=== PATIENT | male | born 1955 | race Caucasian/White ===

== ENCOUNTER 2017-05-22 16:00 | Outpatient (CLI) | payer OTHER ==
--- NOTE | 2017-05-22 16:31 | RAD ---
EIGHT VIEWS CERVICAL SPINE: HISTORY: Cervical radiculopathy. FINDINGS: AP, lateral, swimmer's open-mouth odontoid, flexion, extension, and both oblique views of cervical sp ine obtained. Radiographs demonstrate anterior osteophytes seen at the C4-5 level. Anterior and posterior osteophy is[place] seen at the C5-6 level. Right and left C5-6 neural foraminal narrowing is also seen due to uncov ertebral osteophyte hypertrophy. C6-7 bilateral neural foraminal narrowing is also present due to un covertebral osteophyte hypertrophy. Old healed left clavicular fracture is also present. IMPRESSION: Bilateral C5-6 and C6-7 areas of neural foraminal narrowing. POS: CLAUDIA
== END 2017-05-22 16:01 | disposition home or self-care (01) ==
LOC: SCSRAD 16:00
PROVIDERS: ATTEND Family Medicine
DX: M54.12 Radiculopathy, cervical region (principal)
CPT/HCPCS: 72052